=== PATIENT | female | born 1960 | race Caucasian/White ===

== ENCOUNTER → 2022-04-30 09:15 | Outpatient (BNVA) | payer MEDICARE, SELFPAY | PROVIDERS: Family Provider Family Medicine; PCP Nurse Practitioner Family; Visit Provider Podiatrist Foot & Ankle Surgery | DX: L60.0 Ingrowing nail (principal); E11.8 Type 2 diabetes mellitus with unspecified complications | CPT/HCPCS: 11750; 99204 ==

== ENCOUNTER → 2022-05-15 10:49 | Outpatient (BNVA) | payer MEDICARE, SELFPAY | PROVIDERS: Family Provider Family Medicine; PCP Nurse Practitioner Family; Visit Provider Podiatrist Foot & Ankle Surgery | DX: L60.0 Ingrowing nail (principal); E11.8 Type 2 diabetes mellitus with unspecified complications; Z98.890 Other specified postprocedural states | CPT/HCPCS: 99213 ==

== ENCOUNTER → 2023-05-18 10:50 | Outpatient (BNVA) | payer MEDICARE, SELFPAY | PROVIDERS: Family Provider Family Medicine; PCP Registered Nurse; Visit Provider Registered Nurse | DX: Z13.6 Encounter for screening for cardiovascular disorders (principal); E78.5 Hyperlipidemia, unspecified; E55.9 Vitamin D deficiency, unspecified; Z00.00 Encounter for general adult medical examination without abnormal findings; R73.9 Hyperglycemia, unspecified | CPT/HCPCS: 80053; 80061; 82306; 83036; 85025 ==

== ENCOUNTER 2023-05-25 14:11 | Outpatient (CLI) | payer MEDICARE, SELFPAY ==
--- NOTE | 2023-05-25 14:18 | MM_ITS ---
WS: [id number] Bilateral screening 3D tomosynthesis digital mammogram, 05/25/2023 Clinical Data: Z12.31 - Encounter for screening mammogram for malignant ... Comparison: 06/19/2020, 01/06/2019. Findings: The breast parenchymal pattern shows fibroglandular tissue. No spiculated masses or clustered calcifi cations are seen. There are no secondary signs of carcinoma. There are mole markers on the right cornelio st. There are lymph nodes in both axilla. Impression: 1. Negative bilateral mammogram unchanged. 2. Recommend annual screening mammograms. MM/[place] [id number] BIRADS: 1-Negative FOLLOW UP: 1 Year Follow-up The CAD time checker was used.
== END 2023-05-25 14:12 | disposition home or self-care (01) ==
PROVIDERS: PCP Registered Nurse; Visit Provider Registered Nurse
DX: Z12.31 Encounter for screening mammogram for malignant neoplasm of breast (principal)
CPT/HCPCS: 77063; 77067

== ENCOUNTER 2023-06-08 13:07 | Outpatient (CLI) | payer MEDICARE, SELFPAY ==
--- NOTE | 2023-06-08 13:15 | CT_ITS ---
WS: [id number] LDCT LUNG CANCER SCREENING HISTORY: Z00.00 - Encounter for general adult medical examination ... TECHNIQUE: Axial imaging performed from the apices to 1 cm below the costophrenic angles. Coronal and sagittal reformats are submitted with axial MIP series. All CT scans at [facility] use at least one of these dose optimization techniques: automated exposure control; mA and/or kV adjustment per patient size (includes targeted exams where dose is matched to clinical indication); or iterativ e reconstruction. DLP: 104.21 mGy.cm DIvol: Mean CTDIvol: 2.30 (mGy) COMPARISON: None available. Diagnostic quality: Satisfactory Lungs: No pulmonary mass or nodule. No endobronchial lesions. No pneumonia. Heart: Normal size heart with no pericardial effusion.. Other findings: No adenopathy. No pericardial or pleural effusions. Low-attenuation mass in the liver measures 4.7 x 4.3 cm. This is probably a cyst. Hepatic steatosis. Variable density in the gallbladder. No adrenal mass. IMPRESSION: CT/CT lung screening [id number] LUNG-RADS: 1S-Negative with Significant Findings FOLLOW UP: 12 Month: Continue annual screening with LDCT OTHER FINDINGS (S MODIFIER): Cystic mass in the liver and variable density the gallbladder. Recommend RIGHT upper quadrant ultrasound. Hepatic cyst and cholel ithiasis suspected.
== END 2023-06-08 13:08 | disposition home or self-care (01) ==
LOC: RAD 13:07
PROVIDERS: PCP Registered Nurse; Visit Provider Registered Nurse
DX: Z12.2 Encounter for screening for malignant neoplasm of respiratory organs (principal)
CPT/HCPCS: 71271

== ENCOUNTER 2023-06-29 07:26 | Outpatient (CLI) | payer MEDICARE, SELFPAY ==
--- NOTE | 2023-06-29 07:45 | US_ITS ---
WS: [id number] Complete ABDOMINAL ULTRASOUND HISTORY: K76.89 - Other specified diseases of liver COMPARISON: CT 06/08/2023 Liver: 13.7 cm in length. Normal size liver. Cyst was present in the RIGHT lobe measures 5.3 x 4.5 cm . No solid mass. Mild hepatic steatosis. No bile duct dilatation. Portal Vein: Normal hepatopetal flow with monophasic waveform. Gallbladder: Stone filled contracted gallbladder. The wall is difficult to visualize. No pericholecys tic fluid. CBD: 0.4 cm Pancreas: Obscured by bowel gas. Right kidney: 9.2 cm x 4.9 x 4.6 cm. Cortex: 1.2 cm. Normal size and echogenicity. No hydronephrosis or mass. Left kidney: 10.7 cm x 5.2 cm x 4.9 cm. Cortex: 1.3 cm. Normal size and echogenicity. No hydronephrosis or mass. Spleen: Normal. 11.5 cm in length. Aorta and IVC: Unremarkable abdominal aorta and IVC. Impression: 1. Cholelithiasis. Numerous stones filling a contracted gallbladder. No evidence for acute cholecysti tis at this time. 2. Hepatic cyst 5.3 x 4.5 cm. 3. Poorly visualized pancreas. 4. No hydronephrosis.
== END 2023-06-29 07:27 | disposition home or self-care (01) ==
LOC: RAD 07:26
PROVIDERS: PCP Registered Nurse; Visit Provider Registered Nurse
DX: K76.89 Other specified diseases of liver (principal); K80.20 Calculus of gallbladder without cholecystitis without obstruction
CPT/HCPCS: 76700

== ENCOUNTER → 2023-08-27 15:09 | Outpatient (BNVA) | payer MEDICARE, SELFPAY | PROVIDERS: PCP Registered Nurse; Visit Provider Registered Nurse | DX: E11.9 Type 2 diabetes mellitus without complications (principal) | CPT/HCPCS: 83036 ==

== ENCOUNTER → 2023-10-22 10:02 | Outpatient (BNVA) | payer MEDICARE, SELFPAY | PROVIDERS: PCP Registered Nurse; Visit Provider Registered Nurse | DX: Z91.018 Allergy to other foods (principal); G62.9 Polyneuropathy, unspecified | CPT/HCPCS: 86003; 86008 ==

== ENCOUNTER 2024-01-04 08:50 | Outpatient (CLI) | payer MEDICARE, SELFPAY ==
--- NOTE | 2024-01-04 09:00 | US_ITS ---
WS: [id number] RIGHT UPPER QUADRANT ULTRASOUND HISTORY: K76.89 - Other specified diseases of liver COMPARISON: Ultrasound 06/29/2023, CT lung screening 06/08/2023 Liver: 16.4 cm in length. Normal size liver. There is a large slightly lobulated cyst in the RIGHT lo be of the liver. Cyst measures 5.3 x 5.1 x 5.2 cm. Cyst has been previously described and unchanged. No bile duct dilatation. Portal Vein: Normal hepatopetal flow with monophasic waveform. Gallbladder: Stone filled gallbladder. Numerous stones are identified surrounding the gallbladder. Th e stones are enlarged measuring up to 3.2 cm. CBD: 0.3 cm Pancreas: Head and tail are obscured by bowel gas. Body is normal. Right kidney: 10.6 cm in length. Normal size and echogenicity. No hydronephrosis or mass. Aorta and IVC: Unremarkable abdominal aorta and IVC. No ascites. US/US liver [id number] IMPRESSION: 1. Numerous gallstones in a contracted gallbladder. 2. No bile duct dilatation. 3. Stable simple hepatic cyst.
== END 2024-01-04 08:51 | disposition home or self-care (01) ==
LOC: RAD 08:50
PROVIDERS: PCP Registered Nurse; Visit Provider Registered Nurse
DX: K76.89 Other specified diseases of liver (principal)
CPT/HCPCS: 76705

== ENCOUNTER → 2025-01-11 13:03 | Outpatient (BNVA) | payer OTHER, MEDICARE, SELFPAY | PROVIDERS: PCP Registered Nurse; Visit Provider Registered Nurse | DX: Z02.83 Encounter for blood-alcohol and blood-drug test (principal) | CPT/HCPCS: 80307 ==

== ENCOUNTER → 2025-06-20 15:04 | Outpatient (BNVA) | payer MEDICARE, SELFPAY | PROVIDERS: PCP Registered Nurse; Referring Provider Family Medicine; Visit Provider Internal Medicine Cardiovascular Disease | DX: R07.9 Chest pain, unspecified (principal); I45.9 Conduction disorder, unspecified | CPT/HCPCS: 93005 ==

== ENCOUNTER 2025-07-13 14:35 | Outpatient (CLI) | payer MEDICARE, OTHER, SELFPAY ==
--- NOTE | 2025-07-13 15:00 | USCV_ITS ---
Roberto Licea Age: 65 Gender: F : 1960 Exam Date: 07/13/2025 14:59 Ordering Phys: Rylee Gates MD ([email or web address]) Technologist: LAWRENCE Exam Location: [facility] [place] Indication: murmur BP: 150 / 89 HR: 79 Rhythm: Sinus Technical Quality: Adequate MEASUREMENTS (Male / Female) Normal Values 2D ECHO LV Diastolic Diameter PLAX 5.0 cm 4.2 - 5.9 / 3.9 - 5.3 cm IVS Diastolic Thickness 0.7 cm 0.6 - 1.0 / 0.6 - 0.9 cm IVS Systolic Thickness 0.9 cm LVPW Diastolic Thickness 0.9 cm 0.6 - 1.0 / 0.6 - 0.9 cm LVPW Systolic Thickness 1.2 cm LVOT Diameter 1.9 cm LV Ejection Fraction 2D Teich 46.1 % LV Ejection Fraction MOD 4C 71.2 % LV Ejection Fraction MOD 2C 61.8 % LV Ejection Fraction 2C AL 62.9 % LA Diameter 3.6 cm RA Systolic Volume 4C AL 22.8 ml RA Systolic Volume 4C MOD 23.8 ml LA Sys Volume AL 48.6 cm cubed LA Sys Volume Index AL 21.7 cm cubed/m squared Aorta at Sinotubular Diameter 2.4 cm IVC Diameter 1.7 cm M-MODE LA Ao Ratio MM 1.7 AV Cusp Separation MM 1.7 cm DOPPLER AV Peak Velocity 156.0 cm/s LVOT Peak Velocity 121.0 cm/s AV Area Cont Eq vti 2.3 cm squared AV Area Cont Eq pk 2.2 cm squared MV Peak Velocity 144.0 cm/s MV Area PHT 3.3 cm squared Mitral E to A Ratio 1.2 TV Peak Velocity 208.5 cm/s TR Peak Velocity 303.0 cm/s TR Peak Gradient 36.7 mmHg TV Peak E Velocity 82.0 cm/s PV Peak Velocity 107.0 cm/s FINDINGS Left Ventricle Normal left ventricular size, systolic function and wall thickness, with no regional wall motion abnormalities. Left ventricular ejection fraction is estimated at 60 %. Right Ventricle Normal right ventricular size and systolic function. Right Atrium Normal right atrial size. Normal right atrial size. Left Atrium Normal left atrial size. IA Septum Normal interatrial septum. Mitral Valve Mildly thickened mitral valve. Mild mitral valve regurgitation. Aortic Valve Thickened aortic valve. No aortic valve stenosis. Tricuspid Valve Structurally normal tricuspid valve. Trace tricuspid valve regurgitation. Pulmonic Valve Pulmonic valve not well visualized. Trace pulmonary valve regurgitation. Pericardium No pericardial effusion. Aorta Normal size aortic root and proximal ascending aorta. IVC Inferior vena cava not visualized. CONCLUSIONS Normal left ventricular size and normal LV systolic function. LVEF normal estimated at 60%. Normal RV size and RV systolic function. Mild mitral regurgitation. Normal right heart and pulmonary pressures. Gudelia Julio MD (Electronically Signed) Final Date: 25 July 2025 14:53 S
== END 2025-07-13 14:36 | disposition home or self-care (01) ==
PROVIDERS: PCP Registered Nurse; Visit Provider Internal Medicine Cardiovascular Disease
DX: R01.1 Cardiac murmur, unspecified (principal); I34.0 Nonrheumatic mitral (valve) insufficiency
CPT/HCPCS: 93306

== ENCOUNTER → 2025-08-07 08:58 | Outpatient (BNVA) | payer MEDICARE, OTHER, SELFPAY | PROVIDERS: PCP Registered Nurse; Visit Provider Nurse Practitioner Family | DX: I10 Essential (primary) hypertension (principal) | CPT/HCPCS: 80053 ==

== ENCOUNTER 2025-08-16 11:37 | Outpatient (CLI) | payer MEDICARE, OTHER, SELFPAY ==
--- NOTE | 2025-08-16 | ECG_ITS ---
[facility] 2025[facility]16 Pat Name: Roberto Licea Department: Room: Gender: Female Program Instructor: : 1960 Requested By: Barbara Hameed Order Number: [id number] Theresa MD: ZACK VÁSQUEZ Interpretive Statements Lung unchanged pre/post procedure; Intraprocedure shortess of breath; Symptoms resoled by discharge EXERCISE DATA: The patient was exercised by Suleman protocol. Baseline heart rate was 63 beats per minute. Baseline blood pressure was 143/83 millimeters of mercury. Target heart rate was 156 beats per minute. Maximum heart rate achieved was 159, which was 101% of the target heart rate. Maximum blood pressure was 201/92 millimeters of mercury. Total exercise time was 4 minutes and 37 seconds. Maximum METs achieved was 7.0, maximum VO2 was 24.5. The reason for ending the test was shortness of breath. The patient complained of during the stress test, which then resolved at the end of the test. ELECTROCARDIOGRAM: BASELINE: Showed sinus rhythm, normal axis, no significant ST-T changes at the baseline noted. EXERCISE: At the peak exercise level, no significant ST-T changes suggestive of ischemia noted. RECOVERY: During the recovery period, heart rate dropped appropriately. No significant ST-T changes in the recovery suggestive of ischemia noted. CONCLUSION: 1. Exercise capacity poor 2. Heart rate response was tachycardic. 3. Blood pressure response was hypertensive. 4. Symptoms not suggestive of ischemia. 5. Electrocardiogram portion of the stress test was not suggestive of ischemia. 6. Please note that due to poor exercise capacity and under achievement of METS specificity and sensitivity of EKG portion of the stress test will be low Electronically Signed On 08-31-2025 18:30:56 [employer] by ZACK VÁSQUEZ [email or web address] [id number]
[2025-08-16 12:00] VITALS: BMI 36.6
[2025-08-16 12:24] VITALS: BP 176/81; PULSE 77
== END 2025-08-16 11:38 | disposition home or self-care (01) ==
LOC: CDL 11:41
PROVIDERS: PCP Family Medicine; Visit Provider Nurse Practitioner Family
DX: R07.9 Chest pain, unspecified (principal); I47.20 Ventricular tachycardia, unspecified; R93.1 Abnormal findings on diagnostic imaging of heart and coronary circulation
CPT/HCPCS: 93017